=== PATIENT | female | born 1990 | race Caucasian/White ===

== ENCOUNTER 2017-03-03 17:05 | Emergency (ER) | payer OTHER ==
[2017-03-03 17:16] VITALS: BP 123/78; PULSE 73; TEMP 98.5; BMI 25.0
[2017-03-03] MEDS ORDERED: ACETAMINOPHEN WITH CODEINE 300MG/30MG TABLET PO ONE (17:40)
[2017-03-03] MEDS ORDERED: ACETAMINOPHEN WITH CODEINE 300MG/30MG TABLET ONE (17:44)
--- NOTE | 2017-03-03 17:49 | PDOC ---
"History of Present Illness - General Chief Complaint: Toothache Stated Complaint: TOOTHACHE Time Seen by Provider: 03/03/17 17:31 History Source: Patient Exam Limitations: No Limitations - History of Present Illness Initial Comments: 03/03/17 17:41 My Chief Complaint: left upper tooth pain with swelling of gums History of present illness: Patient is a 27-year-old female with h/o bipolar d/o here today complaining of worsening pain fractured left upper lateral incisor over the last few days. Patient had seen her dentist but was told that she had had a cleaning prior to repair of this tooth. Patient reports that pain has worsened and now she has swelling around the gum area. No facial edema noted. Pt. took naprosyn without relief of pain. Pt. denies any chance of . 03/03/17 17:52 Timing/Duration: getting worse Severity: moderate Past History - Past Medical History Allergies/Adverse Reactions: Allergies Allergy/AdvReac Type Severity Reaction Status Date / Time No Known Allergies Allergy Verified 03/03/17 17:12 Home Medications: Ambulatory Orders Acetaminophen W/ Codeine #3 [Tylenol # 3 -] 1 tab PO Q6H PRN #11 tablet MDD 4 Penicillin V Potassium [Pen Vee K -] 500 mg PO QID #28 tablet 03/03/17 Other medical history: DENIES. - Psycho/Social/Smoking Cessation Hx Anxiety: No Suicidal Ideation: No Smoking History: Never smoked Have you smoked in the past 12 months: No Number of Cigarettes Smoked Daily: 0 Hx Alcohol Use: No Drug/Substance Use Hx: No Review of Systems - Review of Systems Able to Perform ROS?: Yes Constitutional: No: Symptoms Reported HEENTM: Yes: Dental Problems (left upper incisor fractured with surrounding edema) Respiratory: No: Symptoms reported Cardiac (ROS): No: Symptoms Reported ABD/GI: No: Symptoms Reported : No: Symptoms Reported Musculoskeletal: No: Symptoms Reported Integumentary: No: Symptoms Reported Neurological: No: Symptoms reported *Physical Exam - Vital Signs Last Vital Signs Temp Pulse Resp BP Pulse Ox 98.5 F 73 19 123/78 100 03/03/17 17:12 03/03/17 17:12 03/03/17 17:12 03/03/17 17:12 03/03/17 17:12 - Physical Exam General Appearance: Yes: Appropriately Dressed HEENT: positive: TMs Normal, Other (left lateral incisor fractured with surrounding edema/erythema). negative: Pharyngeal Erythema, Tonsillar Exudate, Tonsillar Erythema, Nasal Congestion, Rhinorrhea, Sinus Tenderness Neck: negative: Lymphadenopathy (R), Lymphadenopathy (L) Respiratory/Chest: positive: Lungs Clear, Normal Breath Sounds. negative: Chest Tender, Respiratory Distress Cardiovascular: positive: Regular Rhythm, Regular Rate, S1, S2 Integumentary: positive: Normal Color Neurologic: positive: Normal Response, Responsive Medical Decision Making - Medical Decision Making 03/03/17 17:49 Patient is a 27-year-old female with h/o bipolar d/o here today complaining of worsening pain fractured left upper lateral incisor over the last few days. Patient had seen her dentist but was told that she had had a cleaning prior to repair of this tooth. Patient reports that pain has worsened and now she has swelling around the gum area. No facial edema noted. Pt. took naprosyn without relief of pain. Pt. denies any chance of . 03/03/17 17:52 left lateral upper incisor fractured, toothache abscess PLAN: tylenol # 3 with codeine now than every 6 hrs prn severe pain # 11 pen VK 500 mg qid for 7 days 03/03/17 18:00 Confidential Drug Utilization Report Search Terms: Marilyn byrd, 1990 Search Date: 03/03/2017 06:00:10 PM The Drug Utilization Report below displays all of the controlled substance prescriptions, if any, that your patient has filled in the last twelve months. The information displayed on this report is compiled from pharmacy submissions to the Department, and accurately reflects the information as submitted by the pharmacies. This report was requested by: Abbie Rucker | Reference #: [id number] Others' Prescriptions Patient Name: Marilyn Byrd Date: 1990 Address: [address] [place] [address] Sex: Female Rx Written Rx Dispensed Drug Quantity Days Supply Prescriber Name 04/17/2016 04/18/2016 phentermine 37.5 mg tablet 30 30 Toya Reese MD 03/06/2016 03/06/2016 phentermine 37.5 mg tablet 30 30 Toya Reese MD *DC/Admit/Observation/Transfer Diagnosis at time of Disposition: Dental abscess Fracture, tooth Qualifiers: Encounter type: initial encounter Fracture type: closed Qualified Code(s): S02.5XXA - Fracture of tooth (traumatic), initial encounter for closed fracture - Discharge Dispostion Disposition: HOME Condition at time of disposition: Stable - Patient Instructions Additional Instructions: Follow up with dentist as soon as possible Rinse mouth after eating with warm salt water Return to emergency room if any swelling of face Patient voiced understanding of Discharge instructions and all questions were answered"
== END 2017-03-03 18:09 | disposition home or self-care (01) ==
LOC: JERFT 17:05
DX: K04.7 Periapical abscess without sinus (principal); S02.5XXA Fracture of tooth (traumatic), initial encounter for closed fracture; X58.XXXA Exposure to other specified factors, initial encounter; Y99.9 Unspecified external cause status
CPT/HCPCS: 99281-25

== ENCOUNTER 2018-02-12 12:21 | Emergency (ER) | payer OTHER ==
[2018-02-12 12:38] VITALS: TEMP 98.5; BMI 24.2
[2018-02-12] MEDS ORDERED: METOCLOPRAMIDE HCL INJECTION 10 MG/2 ML VIAL IVPUSH ONE (13:01)
--- NOTE | 2018-02-12 13:05 | PDOC ---
History of Present Illness - General Chief Complaint: Nausea/Vomiting Stated Complaint: NAUSEA/VOMITING Time Seen by Provider: 02/12/18 12:50 History Source: Patient Exam Limitations: No Limitations - History of Present Illness Initial Comments: 02/12/18 13:02 28yo F with history of bipolar disorder presenting today with generalized abdominal pain for about 2 days. Pt reports her pain started and increased today to the point of being nauseous and multiple episodes of nonbilious/ nonbloody emesis. Pt states it has no association with food at this point and she states that now she cannot keep fluids down (both water and gatorade). Pt reports her LMP was 2 weeks. In addition she endorses some fevers and chills intermittantly along with some dysuria. She denies any sick contact or strange foods that she ate. She denies any headache, SOB, CP/discomfort, palpitations. Denies any C-sections or abdominal surgeries. Past History - Past Medical History Allergies/Adverse Reactions: Allergies Allergy/AdvReac Type Severity Reaction Status Date / Time No Known Allergies Allergy Verified 02/12/18 12:34 Home Medications: Ambulatory Orders Lamotrigine [Lamictal -] 200 mg PO BID 02/12/18 Methylphenidate HCl [Concerta] 36 mg PO DAILY 02/12/18 Ondansetron HCl [Zofran] 8 mg PO Q8H PRN #12 tablet 02/12/18 Quetiapine Fumarate [Seroquel -] 50 mg PO HS 02/12/18 Sulfamethoxazole/Trimethoprim [Bactrim Ds -] 1 tab PO BID #14 tablet 02/12/18 CVA: No COPD: No DVT: No - Immunization History Immunization Up to Date: Yes - Suicide/Smoking/Psychosocial Hx Smoking History: Never smoked Have you smoked in the past 12 months: No Number of Cigarettes Smoked Daily: 0 Information on smoking cessation initiated: No Hx Alcohol Use: No Drug/Substance Use Hx: No Substance Use Type: None Review of Systems - Review of Systems Constitutional: Yes: Chills, Fever. No: Night Sweats, Weakness HEENTM: No: Eye Pain, Blurred Vision, Nose Congestion, Throat Pain Respiratory: No: Cough, Shortness of Breath, Wheezing Cardiac (ROS): No: Chest Pain, Lightheadedness, Palpitations, Syncope, Chest Tightness ABD/GI: Yes: Nausea, Poor Appetite, Poor Fluid Intake, Vomiting, Abdominal cramping. No: Abdominal Distended, Constipated, Diarrhea : Yes: Dysuria. No: Discharge, Frequency, Flank Pain Musculoskeletal: No: Back Pain, Neck Pain Integumentary: No: Rash Neurological: No: Headache, Numbness, Paresthesia, Tingling Psychiatric: No: Anxiety Hematologic/Lymphatic: No: Blood Clots, Easy Bleeding, Easy Bruising *Physical Exam - Vital Signs Last Vital Signs Temp Pulse Resp BP Pulse Ox 98.5 F 79 17 109/77 100 02/12/18 12:34 02/12/18 12:34 02/12/18 12:34 02/12/18 12:34 02/12/18 12:34 - Physical Exam Comments: 02/12/18 13:07 GEN: Mild distress, awake, alert, restless due to pain HEENT: EOMI, EMIL, sclera anicteric, dry mucosa Neck: No lymphadenopathy LUNGS: CTA bilaterally CARDIAC: RRR no murmurs appreciated ABD: Soft, nondistended, generalized mild tenderness to palpation, normoactive BS, no suprapubic tenderness, no guarding, no rebound, negative Belcher's, negative Mcburney's point tenderness BACK: No CVA tenderness EXT: No edema, 2+ DP pulses ED Treatment Course - LABORATORY CBC & Chemistry Diagram: 02/12/18 13:25 02/12/18 13:25 Medical Decision Making - Medical Decision Making 02/12/18 13:06 28yo F with diffuse abdominal pain, nausea, vomiting, subjective fevers, and dysuria --CBC, CMP, Lipase, UA, Urine Cx, B-HCG urine --IVF NS@150cc/hr for dehydration --Reglan 10mg IVP once for nausea --Pepcid --IV tylenol for pain currently --Doubt related, doubt any torsions --Would highly suspect UTI vs. pyelo vs. gastroenteritis vs. other colitis or abdominal etiology. 02/12/18 13:47 CBC unremarkable After reglan administration pt's nausea is being alleviated IVF running currently HCG negative 02/12/18 13:56 UA showing 3+ Leuk esterase with many WBC noted. Pt previously had one episode UTI which did not respond to Macrobid. Will give PO Bactrim 02/12/18 14:31 Pt tolerated 2 cups of water without nausea or vomiting Sent PO Bactrim to pharmacy Sent PO Zofran PRN to pharmacy Okay to d/c *DC/Admit/Observation/Transfer Diagnosis at time of Disposition: Urinary tract infection Qualifiers: Urinary tract infection type: acute cystitis Hematuria presence: without hematuria Qualified Code(s): N30.00 - Acute cystitis without hematuria - Discharge Dispostion Disposition: HOME Condition at time of disposition: Stable Admit: No - Prescriptions Prescriptions: Ondansetron HCl [Zofran] 8 mg PO Q8H PRN #12 tablet PRN Reason: Nausea Sulfamethoxazole/Trimethoprim [Bactrim Ds -] 1 tab PO BID #14 tablet - Referrals - Patient Instructions Additional Instructions: You were seen in the ED for your abdominal pain, fevers, and nausea with vomiting We found that you have a urinary tract infection in your urine. Your other labs were unremarkable You will be given Bactrim DS to take 1 tablet by mouth TWICE per day In addition you will be given Zofran to take every 8 hours as needed for your nausea --These have been sent to [facility] If you develop worsening fevers and chills, worsening pain, blood in your urine , or other concerning symptoms please return to the ER Please follow-up with your primary care physician to make sure your infection resolves. - Post Discharge Activity
[2018-02-12] MEDS ORDERED: METOCLOPRAMIDE HCL INJECTION 10 MG/2 ML VIAL ONE (13:07)
[2018-02-12] MEDS ORDERED: SODIUM CHLORIDE 1,000 ML IV SCH (13:15)
[2018-02-12] MEDS ORDERED: FAMOTIDINE IV 20 MG/12 ML VIAL IVPUSH ONE (13:24)
[2018-02-12] MEDS ORDERED: ACETAMINOPHEN 1000 MG/100 ML VIAL (NON FORMULARY) IVPB ONE (13:25)
[2018-02-12 13:35] LABS: URINE APPEARANCE TURBID; URINE BILIRUBIN NEGATIVE (<2.0 mg/dL); URINE BLOOD NEGATIVE (NEGATIVE); URINE COLOR DKYELLOW; URINE GLUCOSE (UA) NEGATIVE (NEGATIVE); URINE KETONE NEGATIVE (NEGATIVE); URINE NITRITE NEGATIVE (NEGATIVE); URINE PROTEIN NEGATIVE (NEGATIVE); URINE UROBILINOGEN NEGATIVE mg/dL (0.2-1.0)
[2018-02-12 13:36] LABS: BASO % 0.6 % (0-2.0); EOS % 0.9 % (0-4.5); HEMATOCRIT 37.5 % (32.4-45.2); HEMOGLOBIN 12.3 GM/dL (10.7-15.3); LYMPH % 37.2 % (8-40); MCH 27.8 pg (25.7-33.7); MCHC 32.7 g/dl (32.0-36.0); MEAN CELL VOLUME 84.9 fl (80-96); MEAN PLT VOLUME 7.8 fl (7.5-11.1); MONO % 6.9 % (3.8-10.2); NEUT % 54.4 % (42.8-82.8); PLATELET COUNT 220 K/MM3 (134-434); RBC 4.41 M/mm3 (3.60-5.2); RDW 12.8 % (11.6-15.6); WHITE BLOOD COUNT 6.1 K/mm3 (4.0-10.0)
[2018-02-12 13:41] LABS: HCG,QUALITATIVE URINE NEGATIVE
[2018-02-12] MEDS ORDERED: FAMOTIDINE 20 MG/50 ML IVPB 20 MG/50 ML MG IVPB ONE (13:43)
[2018-02-12] MEDS ORDERED: ACETAMINOPHEN INJECTION 100 ML IVPB ONE (13:43)
[2018-02-12 13:46] LABS: URINE LEUK ESTERASE 3+ (NEGATIVE)
[2018-02-12 13:48] LABS: EPI CELLS MODERATE /HPF (FEW); URINE BACTERIA MANY /hpf (NONE SEEN); URINE MUCUS FEW; YEAST MODERATE
[2018-02-12] MEDS ORDERED: SULFAMETHOXAZOLE/TRIMETHOPRIM 800MG/160MG D.S. TABLET PO ONE (13:55)
[2018-02-12] MEDS ORDERED: NITROFURANTOIN MACROCRYSTAL 50 MG CAPSULE (FP) PO SCH (14:00)
[2018-02-12 14:05] LABS: ALBUMIN 4.3 g/dl (3.4-5.0); ANION GAP 8 (8-16); BLOOD UREA NITROGEN 7 mg/dL (7-18); CALCIUM 8.9 mg/dL (8.5-10.1); CHLORIDE 105 mmol/L (98-107); CO2 30 mmol/L (21-32); CREATININE 0.7 mg/dL (0.55-1.02); GLUCOSE,RANDOM 78 mg/dL (74-106); POTASSIUM 3.8 mmol/L (3.5-5.1); SGOT/AST 18 U/L (15-37); SGPT/ALT 18 U/L (12-78); SODIUM 143 mmol/L (136-145); TOT PROT 7.7 g/dl (6.4-8.2)
--- NOTE | 2018-02-12 14:05 | PDOC ---
Attending Attestation - Resident Resident Name: Eugene Sácnhez - ED Attending Attestation I have performed the following: I have examined & evaluated the patient, The case was reviewed & discussed with the resident, I agree w/resident's findings & plan, Exceptions are as noted - HPI HPI: 02/12/18 14:02 28-year-old female with no significant past medical history, recently diagnosed UTI treated with Macrobid but without relief presents now with 2 days of intermittent abdominal pain with nausea/vomiting and inability to tolerate food or liquids. No fevers or chills, no travel, no known sick contacts, no diet changes. She completed her last course of antibiotics about 3 weeks ago, presents for evaluation. No history of recurrent postprandial abdominal pain, no history of abdominal surgeries. - Physicial Exam PE: 02/12/18 14:04 Vital signs normal. Dry mucosa, no jaundice or pallor Epigastric discomfort to palpation without guarding or rebound, no right upper quadrant tenderness No CVA tenderness - Medical Decision Making 02/12/18 14:04 Patient seen and evaluated with the resident. I agree with the overall evaluation, assessment, and management with the following summary of visit: 28-year-old female presents with nausea/vomiting/intermittent abdominal pain in the setting of recent unsuccessfully treated UTI. ? gastroenteritis, r/o biliary or pancreatic etiology. ? ongoing UTI, no clinical findings consistent with pyelo. labs, ua ivf, pain control, anti-emetic, antacid reassess 02/12/18 14:49 markedly improved now tolerated PO. labs normal, no leukocytosis, normal LFT and lipase. UA with elevated wbc. urine cx sent, will treat with abx, understands return criteria.
[2018-02-12 14:06] LABS: ALK PHOS 44 U/L (45-117); BILIRUBIN,TOTAL 0.5 mg/dL (0.2-1.0)
[2018-02-12] MEDS ORDERED: SULFAMETHOXAZOLE/TRIMETHOPRIM 800MG/160MG D.S. TABLET ONE (14:15)
[2018-02-12 15:17] VITALS: BP 128/78; PULSE 78
--- NOTE | 2018-02-14 07:43 | PDOC ---
Patient Follow-up (Call Back) - Post ED Follow - Up Condition at time of discharge: Stable Disposition at time of original discharge: HOME Reason for Call Back: Abnwl. Microbiology (Urine culture preliminary shows lactose fermenting negative bacilli. Patient currently on Bactrim. Will await final report.)
== END 2018-02-12 15:17 | disposition home or self-care (01) ==
LOC: JER 12:21
PROC: 3E0337Z Introduction of Electrolytic and Water Balance Substance into Peripheral Vein, Percutaneous Approach (ICD-10-PCS; principal; 2018-02-12)
DX: N30.00 Acute cystitis without hematuria (principal)
CPT/HCPCS: 36415; 80053; 81003; 81015; 83690; 84703; 85025; 87086; 87186; 96361; 96374; 96375; 99283-25; J0131; J7030

== ENCOUNTER 2018-06-17 13:50 | Emergency (ER) | payer OTHER ==
[2018-06-17 14:02] VITALS: BMI 25.8
[2018-06-17] MEDS ORDERED: METOCLOPRAMIDE HCL INJECTION 10 MG/2 ML VIAL IVPB ONE (15:03)
[2018-06-17] MEDS ORDERED: SODIUM CHLORIDE 1,000 ML IV STA (15:04)
[2018-06-17] MEDS ORDERED: METOCLOPRAMIDE HCL INJECTION 10 MG/2 ML VIAL ONE (15:42)
--- NOTE | 2018-06-17 15:50 | PDOC ---
*Physical Exam - Vital Signs Last Vital Signs Temp Pulse Resp BP Pulse Ox 98.7 F 89 16 106/70 100 06/17/18 14:00 06/17/18 14:00 06/17/18 14:00 06/17/18 14:00 06/17/18 14:00 ED Treatment Course - LABORATORY CBC & Chemistry Diagram: 06/17/18 15:53 06/17/18 15:53 Medical Decision Making - Medical Decision Making 06/17/18 15:49 Pt seen by Midlevel Provider under my direct supervision Pt interviewed and examined Ancillary studies reviewed I agree with plan as outlined by Midlevel Provider *DC/Admit/Observation/Transfer Diagnosis at time of Disposition: Gastroenteritis - Discharge Dispostion Disposition: HOME Condition at time of disposition: Improved - Prescriptions Prescriptions: Quetiapine Fumarate [Seroquel -] 50 mg PO HS #30 tablet - Referrals - Patient Instructions Printed Discharge Instructions: Viral Gastroenteritis Additional Instructions: Rest, drink plenty of fluids and take medications as directed Please follow up with your OB this week Return to ED for worsening of symptoms - Post Discharge Activity
--- NOTE | 2018-06-17 16:05 | PDOC ---
History of Present Illness - General Chief Complaint: Vomiting/Diarrhea Stated Complaint: NAUSEA (12 WKS )light headed Time Seen by Provider: 06/17/18 14:06 History Source: Patient - History of Present Illness Timing/Duration: reports: other Past History - Past Medical History Allergies/Adverse Reactions: Allergies Allergy/AdvReac Type Severity Reaction Status Date / Time No Known Allergies Allergy Verified 06/17/18 14:02 Home Medications: Ambulatory Orders Lamotrigine [Lamictal -] 200 mg PO BID 02/12/18 Methylphenidate HCl [Concerta] 36 mg PO DAILY 02/12/18 Ondansetron HCl [Zofran] 8 mg PO Q8H PRN #12 tablet 02/12/18 Sulfamethoxazole/Trimethoprim [Bactrim Ds -] 1 tab PO BID #14 tablet 02/12/18 Quetiapine Fumarate [Seroquel -] 50 mg PO HS #30 tablet 06/17/18 CVA: No COPD: No DVT: No - Immunization History Immunization Up to Date: Yes - Suicide/Smoking/Psychosocial Hx Smoking History: Never smoked Have you smoked in the past 12 months: No Number of Cigarettes Smoked Daily: 0 Information on smoking cessation initiated: No Hx Alcohol Use: No Drug/Substance Use Hx: No Substance Use Type: None Review of Systems - Review of Systems Constitutional: No: Chills, Fever, Weakness ABD/GI: Yes: Diarrhea, Nausea, Vomiting. No: Abdominal cramping : No: Dysuria, Flank Pain *Physical Exam - Vital Signs Last Vital Signs Temp Pulse Resp BP Pulse Ox 98.7 F 89 16 106/70 100 06/17/18 14:00 06/17/18 14:00 06/17/18 14:00 06/17/18 14:00 06/17/18 14:00 - Physical Exam General Appearance: Yes: Appropriately Dressed. No: Apparent Distress HEENT: positive: Normal Voice Neck: positive: Supple Respiratory/Chest: negative: Respiratory Distress Gastrointestinal/Abdominal: positive: Soft. negative: Tender Musculoskeletal: negative: CVA Tenderness Integumentary: positive: Dry, Warm Neurologic: positive: Fully Oriented, Alert, Normal Mood/Affect ED Treatment Course - LABORATORY CBC & Chemistry Diagram: 06/17/18 15:53 06/17/18 15:53 Medical Decision Making - Medical Decision Making 06/17/18 15:53 28 yo F, , ~11 weeks by US 3 weeks ago, no issues w/ preg so far, here w/ multiple e/o NB, NB vomitus w/ loose stools since yesterday. Denies any abdominal cramping, BRBPR, fever or chills. No recent travel, sick contacts, abx use or unusual food. States she takes seroquel for insomnia and anxiety, but ran out 2 days ago and noticed that whenever she runs out of her seroquel, she gets similar GI symptoms. No lower abd cramping or dysuria See exam Possible gastroenteritis No RF for serious dysentery Stable and well miriam w/ benign abd -antiemetic -IVF -labs -no lower pain/vag bleed to necessitate OB US at this time, s/p US 3 weeks ago w / ~11 week fetus w/ cardiac activity per pt -reassess 06/17/18 16:55 06/17/18 17:11 Patient reports feeling significantly better with meds and able to virgil po. Labs unremarkable. Stable for dc w/ supportive tx and OB f/u this week *DC/Admit/Observation/Transfer Diagnosis at time of Disposition: Gastroenteritis - Discharge Dispostion Disposition: HOME Condition at time of disposition: Improved - Prescriptions Prescriptions: Quetiapine Fumarate [Seroquel -] 50 mg PO HS #30 tablet - Referrals - Patient Instructions Printed Discharge Instructions: Viral Gastroenteritis Additional Instructions: Rest, drink plenty of fluids and take medications as directed Please follow up with your OB this week Return to ED for worsening of symptoms - Post Discharge Activity
[2018-06-17 16:37] LABS: URINE APPEARANCE CLEAR; URINE BILIRUBIN NEGATIVE (<2.0 mg/dL); URINE COLOR STRAW; URINE GLUCOSE (UA) NEGATIVE (NEGATIVE); URINE KETONE NEGATIVE (NEGATIVE); URINE LEUK ESTERASE NEGATIVE (NEGATIVE); URINE NITRITE NEGATIVE (NEGATIVE); URINE PROTEIN NEGATIVE (NEGATIVE); URINE UROBILINOGEN NEGATIVE mg/dL (0.2-1.0)
[2018-06-17 16:38] LABS: BASO % 0.2 % (0-2.0); EOS % 0.2 % (0-4.5); HEMATOCRIT 35.6 % (32.4-45.2); HEMOGLOBIN 11.8 GM/dL (10.7-15.3); LYMPH % 23.3 % (8-40); MCH 27.7 pg (25.7-33.7); MCHC 33.1 g/dl (32.0-36.0); MEAN CELL VOLUME 83.6 fl (80-96); MEAN PLT VOLUME 8.3 fl (7.5-11.1); MONO % 4.3 % (3.8-10.2); PLATELET COUNT 243 K/MM3 (134-434); RBC 4.26 M/mm3 (3.60-5.2); RDW 13.7 % (11.6-15.6); WHITE BLOOD COUNT 10.6 K/mm3 (4.0-10.0)
[2018-06-17 17:05] LABS: ALBUMIN 3.8 g/dl (3.4-5.0); ANION GAP 9 MMOL/L (8-16); BLOOD UREA NITROGEN 6 mg/dL (7-18); CALCIUM 8.6 mg/dL (8.5-10.1); CHLORIDE 106 mmol/L (98-107); CO2 25 mmol/L (21-32); CREATININE 0.3 mg/dL (0.55-1.02); GLUCOSE,RANDOM 85 mg/dL (74-106); POTASSIUM 4.2 mmol/L (3.5-5.1); SGOT/AST 14 U/L (15-37); SGPT/ALT 16 U/L (12-78); SODIUM 140 mmol/L (136-145)
[2018-06-17 17:08] LABS: ALK PHOS 30 U/L (45-117); BILIRUBIN,TOTAL 0.4 mg/dL (0.2-1.0); TOT PROT 7.2 g/dl (6.4-8.2)
[2018-06-17 17:26] VITALS: BP 111/67; PULSE 78; TEMP 98.6
== END 2018-06-17 17:26 | disposition home or self-care (01) ==
LOC: JER 13:50
PROC: 3E0337Z Introduction of Electrolytic and Water Balance Substance into Peripheral Vein, Percutaneous Approach (ICD-10-PCS; principal; 2018-06-17)
PROC: 3E033GC Introduction of Other Therapeutic Substance into Peripheral Vein, Percutaneous Approach (ICD-10-PCS; 2018-06-17)
DX: O26.891 Other specified pregnancy related conditions, first trimester (principal); O99.611 Diseases of the digestive system complicating pregnancy, first trimester; K52.9 Noninfective gastroenteritis and colitis, unspecified; Z3A.12 12 weeks gestation of pregnancy; Z86.59 Personal history of other mental and behavioral disorders; F41.9 Anxiety disorder, unspecified; G47.00 Insomnia, unspecified
CPT/HCPCS: 36415; 80053; 81003; 85025; 96361; 96374; 99283-25; J7030

== ENCOUNTER 2019-04-10 13:25 | Emergency (ER) | payer OTHER ==
[2019-04-10 13:38] VITALS: BP 136/84; PULSE 88; TEMP 98.1; BMI 28.2
--- NOTE | 2019-04-10 13:39 | PDOC ---
Rapid Medical Evaluation Chief Complaint: Pain, Acute Time Seen by Provider: 04/10/19 13:33 Medical Evaluation: Allergies Allergy/AdvReac Type Severity Reaction Status Date / Time No Known Allergies Allergy Verified 06/17/18 14:02 04/10/19 13:33I have performed a brief in-person evaluation of this patient. The patient presents with a chief complaint of: 2 mos. abd cramping and bleeding x 10 days, + Hx Ectopic, 2012 left side Pertinent physical exam findings: amb with mild pain / no rebound or guarding. I have ordered the following: UA / Cx , CBC, CMP, T& Screen, Bhcg The patient will proceed to the ED for further evaluation. 04/10/19 13:34 04/10/19 13:39
[2019-04-10 14:31] LABS: BASO % 0.5 % (0-2.0); EOS % 1.1 % (0-4.5); HEMATOCRIT 36.9 % (32.4-45.2); HEMOGLOBIN 11.8 GM/dL (10.7-15.3); LYMPH % 44.8 % (8-40); MCH 25.4 pg (25.7-33.7); MEAN CELL VOLUME 79.4 fl (80-96); MEAN PLT VOLUME 7.7 fl (7.5-11.1); NEUT % 48.6 % (42.8-82.8); PLATELET COUNT 319 K/MM3 (134-434); RBC 4.65 M/mm3 (3.60-5.2); RDW 13.4 % (11.6-15.6); WHITE BLOOD COUNT 6.6 K/mm3 (4.0-10.0)
[2019-04-10 15:03] LABS: ALBUMIN 3.9 g/dl (3.4-5.0); ALK PHOS 47 U/L (45-117); ANION GAP 6 MMOL/L (8-16); BILIRUBIN,TOTAL 0.2 mg/dL (0.2-1); BLOOD UREA NITROGEN 6.2 mg/dL (7-18); CALCIUM 8.9 mg/dL (8.5-10.1); CHLORIDE 108 mmol/L (98-107); CO2 27 mmol/L (21-32); CREATININE 0.7 mg/dL (0.55-1.3); GLUCOSE,RANDOM 101 mg/dL (74-106); LIPASE 157 U/L (73-393); POTASSIUM 3.9 mmol/L (3.5-5.1); SGOT/AST 12 U/L (15-37); SGPT/ALT 20 U/L (13-61); SODIUM 140 mmol/L (136-145); TOT PROT 7.5 g/dl (6.4-8.2)
--- NOTE | 2019-04-10 15:58 | PDOC ---
History of Present Illness - General Chief Complaint: Pain Stated Complaint: ECTOPIC SYMPTOMS Time Seen by Provider: 04/10/19 13:33 History Source: Patient - History of Present Illness Initial Comments: 04/10/19 15:31 29f , [id number], 3 month post presents with 10 days of heavy vaginal bleeding with cramping. She didn't have a post ultrasound. She states that she did have a menstrual period after giving which ended 3 weeks before the beginning of the bleeding she presently have. The bleeding is associated with painful cramping in the lower quadrants, on and off for the past 10 days as well. She took Tylenol yesterday with some relief but no NSAID recently. Hasn't moved her bowels in 3 days but states this is normal for her, and usually doesn't present with pain. Denies nausea, vomiting, diarrhea, fever, chills, fatigue or dysuria. Currently sexually active, no contraception no IUD. Past History - Past Medical History Allergies/Adverse Reactions: Allergies Allergy/AdvReac Type Severity Reaction Status Date / Time No Known Allergies Allergy Verified 04/10/19 13:40 Home Medications: Ambulatory Orders Lamotrigine [Lamictal -] 200 mg PO BID 02/12/18 Methylphenidate HCl [Concerta] 36 mg PO DAILY 02/12/18 Quetiapine Fumarate [Seroquel -] 50 mg PO HS #30 tablet 06/17/18 CVA: No COPD: No DVT: No - Immunization History Immunization Up to Date: Yes - Suicide/Smoking/Psychosocial Hx Smoking History: Never smoked Have you smoked in the past 12 months: No Number of Cigarettes Smoked Daily: 0 Information on smoking cessation initiated: No Hx Alcohol Use: No Drug/Substance Use Hx: No Substance Use Type: None Review of Systems - Review of Systems Able to Perform ROS?: Yes Is the patient limited Belarusian proficient: No Constitutional: No: Symptoms Reported HEENTM: No: Symptoms Reported Respiratory: No: Symptoms reported Cardiac (ROS): No: Symptoms Reported ABD/GI: Yes: See HPI : No: Symptoms Reported Musculoskeletal: No: Symptoms Reported Integumentary: No: Symptoms Reported All Other Systems: Reviewed and Negative *Physical Exam - Vital Signs Last Vital Signs Temp Pulse Resp BP Pulse Ox 98.1 F 88 18 136/84 98 04/10/19 13:33 04/10/19 13:33 04/10/19 13:33 04/10/19 13:33 04/10/19 13:33 - Physical Exam General Appearance: Yes: Nourished, Appropriately Dressed. No: Apparent Distress HEENT: positive: EOMI, YAMILE, Normal ENT Inspection Respiratory/Chest: positive: Lungs Clear, Normal Breath Sounds. negative: Chest Tender, Respiratory Distress Cardiovascular: positive: Regular Rhythm, Regular Rate, S1, S2 Female Pelvic Exam: positive: normal external exam, normal size ovaries, vaginal bleeding. negative: CMT, discharge, lesions Gastrointestinal/Abdominal: positive: Normal Bowel Sounds, Tender (LRQ), Flat, Soft. negative: Guarding, Mass Extremity: positive: Normal Capillary Refill, Normal Inspection, Normal Range of Motion Integumentary: positive: Normal Color, Dry, Warm Neurologic: positive: Fully Oriented, Alert, Normal Mood/Affect, Normal Response , Motor Strength 5/5 ED Treatment Course - LABORATORY CBC & Chemistry Diagram: 04/10/19 14:00 04/10/19 14:00 - ADDITIONAL ORDERS Additional order review: Laboratory Results 04/10/19 14:00 Sodium 140 Potassium 3.9 Chloride 108 H Carbon Dioxide 27 Anion Gap 6 L BUN 6.2 L Creatinine 0.7 Est GFR (CKD-EPI)AfAm 135.70 Est GFR (CKD-EPI)NonAf 117.08 Random Glucose 101 Calcium 8.9 Total Bilirubin 0.2 AST 12 L ALT 20 Alkaline Phosphatase 47 Total Protein 7.5 Albumin 3.9 Lipase 157 Beta HCG, Quant < 1.0 04/10/19 14:00 RBC 4.65 MCV 79.4 L MCHC 32.0 RDW 13.4 MPV 7.7 Neutrophils % 48.6 D Lymphocytes % 44.8 H D Monocytes % 5.0 Eosinophils % 1.1 D Basophils % 0.5 Medical Decision Making - Medical Decision Making 04/10/19 17:38 29F 3 months post- presents with 10 days of low abdominal cramping and bleeding with clots, LRQ tenderness. Blood in the vaginal canal coming out from cervix. Negative CMT, Less likely to be PID Negative , rules out ectopic. TVUS: The uterus appears unremarkable in overall size and echogenicity measuring approximately 7.7 x 5 x 4.4 cm. No discrete myometrial pathology is noted. Endometrial thickness is 0.5 cm. Within the endometrial canal note is made of several 0.4 cm nonspecific echogenic foci - ? representing clotted blood, retained products of conception and/or air/gas. No free intraperitoneal fluid is seen. The ovaries appear unremarkable. No Doppler evidence of ovarian torsion, sensitivity 70%.. Will consult with Dr. Connolly about possible products of conception in her uterus as per radiologist. Patient reassessed, LRQ pain not presents anymore, may have been symptoms of her constipation, low suspicion for appendicitis, especially in the context of no fever, no wbc, and no tenderness. Spoke to OBGYN senior compensation analyst for Dr. Connolly who thought it was extremely unlikely that what was seen by the radiologist were retained products of conception. Most likely blood. Ok to follow up in the office on Sunday. Ua pending 04/10/19 18:28 04/10/19 18:57 UA negative. Ok to discharge with follow up. *DC/Admit/Observation/Transfer Diagnosis at time of Disposition: Dysmenorrhea - Discharge Dispostion Disposition: HOME Condition at time of disposition: Improved Decision to Admit order: No - Referrals Referrals: Wallace Connolly MD [Staff Physician] - - Patient Instructions Printed Discharge Instructions: Painful Menstrual Periods, Increased Dietary Fiber May Improve Constipation Conditions With Pelvic Kain Additional Instructions: Follow up with your OBGYN on Sunday, Dr. Cononlly. Come back to the emergency department for any new, worsening or concerning symptoms such as fever, worsening pain, nausea, vomiting. Eat plenty of fiber for your constipation. - Post Discharge Activity
[2019-04-10 18:12] LABS: URINE APPEARANCE CLEAR; URINE BILIRUBIN NEGATIVE (NEGATIVE); URINE COLOR YELLOW; URINE GLUCOSE (UA) NEGATIVE (NEGATIVE); URINE KETONE NEGATIVE (NEGATIVE); URINE LEUK ESTERASE NEGATIVE (NEGATIVE); URINE NITRITE NEGATIVE (NEGATIVE); URINE PROTEIN NEGATIVE (NEGATIVE); URINE UROBILINOGEN 0.2 mg/dL (0.2-1.0)
--- NOTE | 2019-04-11 10:25 | PDOC ---
Documentation entered by Jaime López SCRIBE, acting as scribe for Sandee Gilman MD. Sandee Gilman MD: This documentation has been prepared by the Rene saavedra Daniel, SCRIBE, under my direction and personally reviewed by me in its entirety. I confirm that the documentation accurately reflects all work, treatment, procedures, and medical decision making performed by me. Attending Attestation - Resident Resident Name: Raymond Harp - KANDICE Attending Attestation I have performed the following: I have examined & evaluated the patient, The case was reviewed & discussed with the resident, I agree w/resident's findings & plan, Exceptions are as noted - HPI HPI: 04/10/19 16:28 The patient is a 29 year old [id number] female with no past medical history here today for evaluation of vaginal bleeding and cramping. The patient reports that she is 3 months and has had 10 days of vaginal bleeding (patient uses 3 pads a day) and bilateral lower quadrant cramping. She reports not having a US and notes having ectopic pregnancies in the past. She reports being sexually active and having one menstrual period since giving . She also notes that her last bowel movement was 3 days ago but notes that is normal for her. Patient denies headache, lightheadedness. Denies fever, chills. Denies chest pain, shortness of breath. Denies nausea, vomiting, diarrhea. Allergies: NKA - Physicial Exam PE: 04/10/19 16:28 GENERAL: Awake, alert, and fully oriented, in no acute distress HEAD: No signs of trauma EYES: PERRLA, EOMI, sclera anicteric, conjunctiva clear ENT: Auricles normal inspection, hearing grossly normal, nares patent, oropharynx clear without exudates. Moist mucosa NECK: Normal ROM, supple, no lymphadenopathy, JVD, or masses LUNGS: Breath sounds equal, clear to auscultation bilaterally. No wheezes, and no crackles HEART: Regular rate and rhythm, normal S1 and S2, no murmurs, rubs or gallops ABDOMEN: Soft, nontender, normoactive bowel sounds. No guarding, no rebound. No masses EXTREMITIES: Normal range of motion, no edema. No clubbing or cyanosis. No cords , erythema, or tenderness BACK: No midline spinal tenderness in cervical/thoracic/lumbar region NEUROLOGICAL: Normal speech, cranial nerves intact, negative pronator drift, 5/ 5 strength in all 4 extremities, normal sensation to light touch in all 4 extremities, normal cerebellar exam, normal gait, normal reflexes and tone SKIN: Warm, Dry, normal turgor, no rashes or lesions noted. - Medical Decision Making 04/10/19 17:25 29yo F 3 months post presents to the ED with lower abdominal pain and vaginal bleeding (3 pads per day for 10 days) Vitals wnl Exam with mild suprapubic ttp, no RLQ or LLQ ttp Pt well appearing DDx includes menstruation vs UTI vs fibroids vs ovarian cysts Labs wnl UA neg for infection TVUS with blood vs retained POCs in uterus Low likelihood retained POCs as pt is 3 months post , however, case discussed with Dr. Ford who has no further recs and recommends outpt f/u with him this week All results and plan communicated with pt who expresses understanding She is clinically well appearing I discussed the physical exam findings, ancillary test results and final diagnoses with the patient. I answered all of the patient's questions. The patient was satisfied with the care received and felt comfortable with the discharge plan and treatment plan. The patient will call their primary care physician within 24 hours to arrange follow-up and will return to the Emergency Department with any new, persistent or worsening symptoms.
== END 2019-04-10 19:03 | disposition home or self-care (01) ==
LOC: JER 13:25
DX: N94.6 Dysmenorrhea, unspecified (principal)
CPT/HCPCS: 36415; 76830-TC; 80053; 81003; 83690; 84702; 85025; 86850; 86900; 86901; 87086; 99281-25

== ENCOUNTER 2023-03-17 08:56 | Emergency (ER) | payer SELFPAY ==
[2023-03-17 09:05] VITALS: BMI 28.7
[2023-03-17] MEDS ORDERED: ONDANSETRON 4 MG/2 ML VIAL IVPUSH ONE (09:47)
[2023-03-17] MEDS ORDERED: FAMOTIDINE 20 MG/50 ML IVPB 20 MG/50 ML MG IVPB ONE (09:47)
[2023-03-17] MEDS ORDERED: MAG HYDROX/AL HYDROX/SIMETH 30 ML UNIT-DOSE CUP PO ONE (09:48)
[2023-03-17] MEDS ORDERED: ACETAMINOPHEN 1000 MG/100 ML BAG IVPB ONE (09:49)
[2023-03-17] MEDS ORDERED: SUCRALFATE 1 GM TABLET (FP) PO ONE (09:49)
[2023-03-17] MEDS ORDERED: SUCRALFATE 1 GM TABLET (FP) ONE (10:10)
[2023-03-17] MEDS ORDERED: ACETAMINOPHEN INJECTION 100 ML IVPB ONE (10:10)
[2023-03-17] MEDS ORDERED: ONDANSETRON 4 MG/2 ML VIAL ONE (10:10)
[2023-03-17] MEDS ORDERED: FAMOTIDINE 10 MG/ML VIAL IVPB ONE (10:10)
[2023-03-17] MEDS ORDERED: MAG HYDROX/AL HYDROX/SIMETH 30 ML UNIT-DOSE CUP ONE (10:10)
[2023-03-17 10:58] LABS: BASO % 0.5 % (0-2.0); EOS % 0.3 % (0-4.5); HEMATOCRIT 39.7 % (32.4-45.2); LYMPH % 19.4 % (8-40); MCH 26.9 pg (25.7-33.7); MCHC 32.8 g/dl (32.0-36.0); MEAN PLT VOLUME 7.5 fl (7.5-11.1); MONO % 5.1 % (3.8-10.2); NEUT % 74.7 % (42.8-82.8); PLATELET COUNT 285 10^3/uL (134-434); RBC 4.85 M/mm3 (3.60-5.2); RDW 13.8 % (11.6-15.6); WHITE BLOOD COUNT 10.8 K/mm3 (4.0-10.0)
[2023-03-17 11:12] LABS: POTASSIUM 4.6 mmol/L (3.5-5.1)
[2023-03-17 11:14] LABS: CALCIUM 8.9 mg/dL (8.5-10.1)
[2023-03-17 11:15] LABS: ALBUMIN 3.8 g/dl (3.4-5.0); BLOOD UREA NITROGEN 9.3 mg/dL (7-18)
[2023-03-17 11:18] LABS: CREATININE 0.6 mg/dL (0.55-1.3)
[2023-03-17 11:19] LABS: BILIRUBIN,TOTAL 0.4 mg/dL (0.2-1); TOT PROT 7.2 g/dl (6.4-8.2)
[2023-03-17] MEDS ORDERED: SODIUM CHLORIDE 0.9% 500 ML INFUS.BAG IV ONE (11:46)
[2023-03-17 12:18] LABS: PH,URINE 7.5 (5.0-8.0); URINE APPEARANCE CLEAR; URINE BILIRUBIN NEGATIVE (NEGATIVE); URINE COLOR YELLOW; URINE GLUCOSE (UA) NEGATIVE (NEGATIVE); URINE KETONE NEGATIVE (NEGATIVE); URINE LEUK ESTERASE NEGATIVE (NEGATIVE); URINE NITRITE NEGATIVE (NEGATIVE); URINE PROTEIN NEGATIVE (NEGATIVE); URINE UROBILINOGEN 0.2 mg/dL (0.2-1.0)
[2023-03-17 13:29] VITALS: BP 117/81; PULSE 92; RESP 18; TEMP 98.5
== END 2023-03-17 15:18 | disposition left against medical advice (07) ==
LOC: JER 08:56
PROC: 3E033GC Introduction of Other Therapeutic Substance into Peripheral Vein, Percutaneous Approach (ICD-10-PCS; principal; 2023-03-17)
PROC: 3E033NZ Introduction of Analgesics, Hypnotics, Sedatives into Peripheral Vein, Percutaneous Approach (ICD-10-PCS; 2023-03-17)
PROC: 3E033GC Introduction of Other Therapeutic Substance into Peripheral Vein, Percutaneous Approach (ICD-10-PCS; 2023-03-17)
DX: R10.11 Right upper quadrant pain (principal); R11.0 Nausea; R51.9 Headache, unspecified; N93.9 Abnormal uterine and vaginal bleeding, unspecified
CPT/HCPCS: 36415; 76705-TC; 76830-TC; 80053; 81003; 83690; 84702; 84703; 85025; 87086; 99284-25